=== PATIENT | female | born 1985 ===

== ENCOUNTER 2018-07-13 03:07 | Inpatient (IN) ==
--- OUTSIDE RECORDS SUMMARY | 2018-07-13 03:12 | External Medical Summary | Continuity of Care Document ---
:1985 Author Name Geeta Coto, Provider Address Unavailable Unavailable , Care Team Providers Name Role Phone Alli Nicole M.D. Unavailable [email or web address] Unavailable Unavailable Unavailable Unavailable Unavailable Problems Supervision of normal intrauterine pregn trent in multigravida in third trimester (V22.1) (Z34.83) Allergies and Adverse Reactions No Known Allergies (Allergy) Medications Pepcid AC TABS Refills: 0 Iron TABS Refills: 0 Tylenol CAPS Refills: 0 Unisom TABS Refills: 0 Pre- TABS Refills: 0 Colace CAPS Refills: 0 Procedures Non-stress test Date: 11-Jul-2018 History of wisdom tooth extraction Statu s: Completed History of Knee Surgery Status: Complete d Immunizations Immunizations not documented Family History Grandmother Family history of diabetes mellitus (V18.0) (Z83.3) Status: Active Family history of hypertension (V17.49) (Z82.49) Status: Act [place] Family history of cardiac disorder (V17.49) (Z82.49) Status: Active Grandfather Family history of diabetes mellitus (V18.0) (Z83.3) Status: Active Family history of hypertension (V17.49) (Z82.49) Status: Act [place] Family history of cardiac disorder (V17.49) (Z82.49) Status: Active Grandfather Family history of diabetes mellitus (V18.0) (Z83.3) Status: Active Family history of hypertension (V17.49) (Z82.49) Status: Act [place] Family history of cardiac disorder (V17.49) (Z82.49) Status: Active Mother Family history of hypertension (V17.49) (Z82.49) Status: Act [place] uncle Family history of malignant neoplasm of esophagus (V16 .0) (Z80.0) Status: Active Plan of Treatment Planned Encounters Appointment; Alli Nicole M.D. Start: 18-Jul-2018 16:10 Request Planned Observations Planned Goals not documented Results Group B Strep/KELLY 20-Jun-2018 0:00 GRP B BETA STREP CULTURE - KELLY ORDERED P ROCEDURE : GRP B Beta Strep Culture -KELLY; Speciment : V aginal/Rectal Source of Specimen: Vaginal/ Rectal Group B St rep Culture : No Group B Strep isolated Vital Signs 04-Jul-2018 16:12 Systolic 110 mm[Hg] Diastolic 78 mm[Hg] BMI Calculated 25.93 kg/m2 Weight 158.25 lb Height 65.5 in BSA Calculated 1.8 m2 27-Jun-2018 16:04 Systolic 114 mm[Hg] Diastolic 80 mm[Hg] BMI Calculated 26.22 kg/m2 Weight 160 lb Height 65.5 in BSA Calculated 1.81 m2 20-Jun-2018 8:47 Systolic 110 mm[Hg] Diastolic 82 mm[Hg] BMI Calculated 25.46 kg/m2 Weight 155.375 lb Height 65.5 in BSA Calculated 1.79 m2 Encounters Appointment; Wilberto Burden M.D. 11-Jul-2018 8:30 Encounter Diagnosis: Problem not documented Appointment; Kevin Silver M.D. 04-Jul-2018 16:00 Encounter Diagnosis: Problem not documented Appointment; Alli Nicole M.D. 27-Jun-2018 16:10 Encounter Diagnosis: Problem not documented Appointment; Izzy Beaulieu M.D. 20-Jun-2018 8:50 Encounter Diagnosis: Problem not documented Appointment; Maggie Gilmore DO 06-Jun-2018 16:00 Encounter Diagnosis: Problem not documented Appointment; Kevin Silver M.D. 24-May-2018 8:20 Encounter Diagnosis: Problem not documented Appointment; Erica Snell M.D. 09-May-2018 16:30 Encounter Diagnosis: Problem not documented Appointment; Wilberto Burden M.D. 25-Apr-2018 16:10 Encounter Diagnosis: Problem not documented Appointment; Wilberto Burden M.D. 11-Apr-2018 16:00 Encounter Diagnosis: Problem not documented Appointment; Alli Nicole M.D. 15-Mar-2018 13:20 Encounter Diagnosis: Problem not documented Appointment; OBGYMarta SC2, Ultrasound 15-Mar-2018 12:30 Encounter Diagnosis: Problem not documented Appointment; OB SC1, Procedure Rm 15-Feb-2018 12:00 Encounter Diagnosis: Problem not documented Appointment; Alli Nicole M.D. 15-Feb-2018 12:00 Encounter Diagnosis: Problem not documented Appointment; OBTAJ SC1, Ultrasound 24-Dec-2017 10:30 Encounter Diagnosis: Problem not documented Appointment; OB SC1, Nursing [facility] 24-Dec-2017 8:45 Encounter Diagnosis: Problem not documented Appointment; Alli Nicole M.D. 18-Jul-2018 16:10 Encounter Diagnosis: Problem not documented
[2018-07-13] MEDS ORDERED: LACTATED RINGER'S 1,000 ML IV PRN (03:24)
[2018-07-13] MEDS ORDERED: OXYTOCIN 30 UNITS/500 ML BAG IV PRN ×2 (03:24→13:00)
--- NOTE | 2018-07-13 03:30 | History & Physical Report ---
Date of Service July 13, 2018 Assessment & Plan (1) 39 weeks gestation of : term labor, admit, iv, labs. categ 1 fhts. can ambulate with intermittent monitoring. History of Present Illness Chief Complaint: regular ctx Primary Care Provider: NO PCP 33yo at 39 weeks presents to L&D with above cc. Contractions q 3-5min per patient report and advised to come for labor check. No rom. no vb. +FM. pnc uncomplicated, seems that pt had h/o genital herpes with no recent outbreak or sx, not given valtrex, denies outbreak currently pnl rh pos, ri, gbs neg pmh: neg psh: wisdom teeth and knee surgeries sh: no tob/etoh/drugs fh: no ramirez anom or mr gynh: remote h/o abnl pap, no procedures, recent nl pap, h/o chlamydia and genital herpes obh: x 1 Allergies Allergy/AdvReac Type Severity Reaction Status Date / Time No Known Allergies Allergy Verified 06/08/18 19:15 Home Medications Home Medications Medication Instructions Recorded Confirmed Type PNV cmb#95-ferrous fumarate-FA 1 tab PO DAILY 06/08/18 06/08/18 History [] acetaminophen 500 mg PO DIRECTED PRN 06/08/18 06/08/18 History albuterol sulfate 2 inha INH Q6H PRN #1 ea 06/08/18 Rx diphenhydramine HCl [Unisom 50 mg PO HS PRN 06/08/18 06/08/18 History Sleepgels] docusate sodium [Colace] 100 mg PO BID 06/08/18 06/08/18 History famotidine [Pepcid AC] 20 mg PO DAILY 06/08/18 06/08/18 History ferrous sulfate [iron] 1 tab PO DAILY 06/08/18 06/08/18 History Patient History Social History Preferred Language: Panamanian Current Living Situation: Spouse Feels Safe at Home: Yes Smoking Status: Never smoker Review of Systems per hpi Physical Exam Constitutional: WD/WN, vitals as above Respiratory: normal respiratory effort, lungs clear to auscultation Cardiovascular: Rate/Rhythm: regular rate and regular rhythm Gastrointestinal (Abdomen): gravid nt, efw 7.5# Musculoskeletal: no edema Neurologic: grossly normal Genitourinary: Manual OB Exam: + cervical dilation (3-4cm), + cervical effacement 90% and + station -2 OB Exam Monitor Tracing: + external FHT monitor used (120 moderate variability, reactive), + external uterine monitor used (q1-3) and + category I Results & Data Vital Signs (Past 12 Hours) Vital Signs Temp Pulse Resp BP 07/13/18 03:23 80 134/88 07/13/18 03:21 97.7 F 20
[2018-07-13 03:48] LABS: Hemoglobin 13.6 g/dL (12.0-16.0); Mean Corpuscular Volume 86.9 fL (80-100); Platelet Count 149 K/uL (130-400); RDW Coefficient of Variation 12.5 % (11.5-14.5); RDW Standard Deviation 39.6 fL (36.4-46.3); Red Blood Count 4.26 M/uL (4.2-5.4); White Blood Count 13.01 K/uL (4.8-10.8)
[2018-07-13 03:50] LABS: Mean Corpuscular Hgb Conc 36.8 g/dL (32-36)
--- NOTE | 2018-07-13 08:23 | Obstetrical Progress Note ---
Date of Service July 13, 2018 Assessment & Plan (1) 39 weeks gestation of : good cx change. given that pt prefers not to have arom. fhts categ 1. aware that new md taking over. Subjective still feeling strong ctx. stronger and more regular when she walks. does not want arom if not needed. Physical Exam Constitutional: WD/WN, vitals as above Genitourinary: Manual OB Exam: + cervical dilation 7 cm, + cervical effacement 90% and + station -1 OB Exam Monitor Tracing: + external FHT monitor used (categ 1) and + external uterine monitor used (q2-4) Results & Data Vital Signs (Past 12 Hours) Vital Signs Temp Pulse Resp BP 07/13/18 07:11 97.5 F L 83 20 118/82 07/13/18 05:22 82 113/54 L 07/13/18 03:23 80 134/88 07/13/18 03:21 97.7 F 20
[2018-07-13] MEDS ORDERED: DIPHTHERIA/TETANUS/PERTUSSIS 0.5 ML SYR/VIAL IM ONE (13:00)
[2018-07-13] MEDS ORDERED: BENZOCAINE 20% AER SPR 82.5 GM CAN EXT PRN (13:00)
[2018-07-13] MEDS ORDERED: SUPERCREAM 0.870% 15 GM JAR EXT PRN (13:00)
[2018-07-13] MEDS ORDERED: HYDROCORTISONE ACETATE 25 MG SUPP PR PRN (13:00)
[2018-07-13] MEDS ORDERED: ACETAMINOPHEN 325 MG TAB PO PRN (13:00)
--- NOTE | 2018-07-13 13:31 | Delivery Summary ---
DATE OF OPERATION: 07/13/2018 PROCEDURE: Normal spontaneous vaginal delivery. SURGEON: Wilberto Burden MD. PREOPERATIVE DIAGNOSES: 1. Single intrauterine at 39+ weeks gestational age. 2. Labor. 3. History of herpes simplex virus with no recent outbreaks. POSTOPERATIVE DIAGNOSES: 1. Single intrauterine at 39+ weeks' gestational age. 2. Labor. 3. History of herpes simplex virus with no recent outbreaks. 4. Delivered. ESTIMATED BLOOD LOSS: 200 mL. DRAINS: None. FLUIDS: Continuous lactated Ringer. URINE OUTPUT: Not measured. COMPLICATIONS: None. FINDINGS: Viable female infant with Apgars of 7 and 9 at one and five minutes respectively and weight pending. INDICATIONS: Ms. Romero is a 33-year-old G2, P1-0-0-1 admitted at 39+ weeks' gestational age in active labor. The patient progressed without any augmentation. She underwent a spontaneous rupture of membranes. She progressed to labor without epidural to complete, complete, +2 station. PROCEDURE DESCRIPTION: The patient progressed to 10 cm dilated, 100% effaced, +2 station. She initially observed to 9.5 cm dilated, 100% effaced, +2 station. At which time, she felt a strong urge to push. She pushed over several contractions, reduced the cervix. As the cervix was reduced, she pushed over additional 3-4 contractions to deliver the . The head of the delivered in DANIS position and restituted to right transverse. A single nuchal cord was noted, which was easily reduced. The body and shoulders quickly followed and the was noted to be vigorous soon after delivery. A 1 minute delayed cord clamping was initiated, at which the cord was double clamped and cut. Cord blood was then obtained. Attention was then turned to deliver the placenta. It was delivered intact with 3-vessel cord with gentle cord traction. On inspection of the vagina, perineum and cervix, there was noted to be no lacerations. There was noted to be minimal bleeding. Decision was made to end the case. Sponge and instrument counts were correct at the completion of the case. I attest to the content of the Intraoperative Record and any orders documented therein. Any exception s are noted below.
[2018-07-13] MEDS: IBUPROFEN 600 MG TAB PO PRN ×2 (13:37→17:39)
[2018-07-13] MEDS: DOCUSATE SODIUM 100 MG CAP PO SCH (21:45)
[2018-07-14 06:41] LABS: Hematocrit (blood only) 32.9 % (37-47); Hemoglobin 12.1 g/dL (12.0-16.0); Mean Corpuscular Hgb Conc 36.8 g/dL (32-36); Mean Corpuscular Volume 87.5 fL (80-100); Mean Platelet Volume 10.7 fL (7.4-10.4); Platelet Count 129 K/uL (130-400); RDW Coefficient of Variation 12.5 % (11.5-14.5); RDW Standard Deviation 40.1 fL (36.4-46.3); Red Blood Count 3.76 M/uL (4.2-5.4); White Blood Count 12.88 K/uL (4.8-10.8)
--- NOTE | 2018-07-14 08:37 | Obstetrical Progress Note ---
Date of Service July 14, 2018 Assessment & Plan (1) 39 weeks gestation of : PPD 1 from . Doing well Subjective Patient doing well Physical Exam Gastrointestinal (Abdomen): Percussion/Palpation: abdomen soft; abdomen nontender, no guarding and abdomen not rigid Genitourinary: OB Exam Abdomen: + fundal height Fundus: + firm and + relation to umbilicus (Below); not tender and not boggy Results & Data Vital Signs (Past 12 Hours) Vital Signs Temp Pulse Resp BP 07/14/18 04:30 97.9 F 62 18 122/80 07/13/18 23:59 97.5 F L 84 18 120/82
[2018-07-14] MEDS ORDERED: PRENATAL VITAMIN 1 TAB PO SCH (09:00)
[2018-07-14] MEDS: DOCUSATE SODIUM 100 MG CAP PO SCH (09:08)
[2018-07-14] MEDS: IBUPROFEN 600 MG TAB PO PRN (09:09)
[2018-07-14] MEDS ORDERED: BISACODYL 5 MG TABEC PO SCH (20:00)
[2018-07-15] MEDS ORDERED: BISACODYL 10 MG SUPP PR PRN (09:00)
== END 2018-07-14 15:30 | disposition home or self-care (01) | DRG 807 ==
LOC: OPB 03:07 → 4S1 03:10 → 4S2 16:18